=== PATIENT | male | born 1965 | race Caucasian/White ===

== ENCOUNTER 2016-08-17 07:31 | Emergency (ER) | payer SELFPAY ==
--- NOTE | 2016-08-17 08:22 | ERNOTE ---
Medical Problem HPI - Narrative Date of Service: 08/17/16 - General Chief Complaint: Laceration Time Seen by Provider: 08/17/16 08:07 Source: patient Exam Limitations: no limitations - Immun/Allergies/Home Medications Immunizations: IMMUNIZATION HX Immunizations Up to Date Yes Allergies/Adverse Reactions: Allergies No Known Allergies Allergy (Verified 08/17/16 07:39) Home Medications: HOME MEDICATIONS Cephalexin [Keflex] 500 mg PO QID #40 capsule 08/17/16 [Last Taken Unknown] - History of Present History Narrative: pt sustained a laceration to right middle and index finger three days ago. Now the middle digit laceration is swollen and red and tender. Review of Systems - Review of Systems Constitutional: Present: no symptoms reported EYE: Present: no symptoms reported ENT: Present: no symptoms reported Respiratory: Present: no symptoms reported Cardiology: Present: no symptoms reported Gastrointestinal/Abdominal: Present: no symptoms reported Genitourinary: Present: no symptoms reported Musculoskeletal: Present: See HPI Skin: Present: See HPI Neurological: Present: no symptoms reported - Patient's Past Medical History Patient History - Medical: Migraines Patient History - Cancer: No Hx of Cancer Patient History - Surgical Procedures: Other - Social History Living Situations: home Alcohol Use: none - Immunizations Immunizations Up to Date: Yes Physical Exam - Physical Exam General Appearance: Present: wd/wn, alert, no apparent distress Ears, Nose, Throat: Present: normal ENT inspection Respiratory: Present: no respiratory distress, normal breath sounds, no accessory muscle use, chest nontender, lungs clear. Absent: chest tenderness Cardiovascular/Chest: Present: regular rate, rhythm, no murmur, normal peripheral pulses Extremity Exam: Present: other - pt has a 1 cm laceration which appears to be infected in the dorsum of the PIP of right middle digit. Also 1 cm laceration to dorsum of right index PIP. These are OLD lacerations and no longer bleeding. The index finger laceration does not appear infected but it is slightly open ED Progress - Vital Signs Patient's Vital Signs:: I have reviewed the patient's vital signs. Vital Signs: Vital Signs 08/17/16 07:35 Temperature 37.3 C Pulse Rate 115 H Respiratory 12 Rate Blood Pressure 152/97 O2 Sat by Pulse 99 Oximetry - Progress/Reassessment Chief Complaint: Laceration Plan - Plan Plan: appropriate cultures were taken. The wounds were cleaned and dressed and volar splint applied so pt can NOT flex digits. Will administer Rocephin 2 gm IV and discharge on Keflex 500mg QID. This patient MUST follow up with PCP in 48-72 hours. Pt states last Tetanus shot was within five years ago. So none indicated today. Departure - Departure Clinical Impression: Cellulitis of finger of right hand Disposition: Home self-care Condition: Good Instructions: Cellulitis, Adult, [id number] Additional Instructions: YOU MUST CHOOSE A PHYSICIAN OR A PROVIDER AND FOLLOW UP WITH THEM IN 2 DAYS FOR A WOUND CHECK PLEASE. Prescriptions: Cephalexin [Keflex] 500 mg PO QID #40 capsule
[2016-08-17 08:50] VITALS: BP 148/87
== END 2016-08-17 09:12 | disposition home or self-care (01) ==
LOC: ER 07:31
PROC: 2W3JX1Z Immobilization of Right Finger using Splint (ICD-10-PCS; principal; 2016-08-17)
DX: L03.011 Cellulitis of right finger (principal)

== ENCOUNTER 2016-09-01 08:18 | Emergency (ER) | payer SELFPAY ==
--- OUTSIDE RECORDS SUMMARY | 2016-09-01 09:06 | XMS REPORT | Continuity of Care Document ---
:1965 Author Organization [facility] ([facility]) Address [place] [address] Phone [phone] Care Team Providers Name Role Phone Cass Nassar Primary Care Provider [phone] Source Comments This disclosure is being made pursuant to the Care Everywhere program, applicable federal and state laws, and may not contain all informaitonavailable regarding this patient.[facility] ([facility]) Active Allergies and Adverse Reactions No Known Allergies Current Medications Prescription Sig. Disp. Refills Start Date End Date Status SUMAtriptan 50 mg Take 1 Tab by mouth 9 Tab 6 09/26/2012 Active tablet once as needed. Indications: MIGRAINE propranolol 20 mg Take 1 Tab by mouth 180 Tab 6 09/26/2012 Active tablet 2 times daily. Indications: MIGRAINE PREVENTION Active Problems Problem Noted Date Nicotine addiction 09/26/2012 Migraine 01/14/2011 Resolved Problems Problem Noted Date Resolved Date Eczema 01/14/2011 09/26/2012 History of alcohol abuse 01/14/2011 09/26/2012 Social History Tobacco Use Types Packs/Day Years Used Date Current Every Day Smoker Cigarettes 0.5 20 Smokeless Tobacco: Never Used Alcohol Use Drinks/Week oz/Week Comments No Currently recovering alcoholic Last Filed Vital Signs Vital Sign Reading Time Taken Blood Pressure 123/82 09/26/2012 12:22 PM CDT Pulse 110 09/26/2012 12:22 PM CDT Temperature 36.7 C (98.1 F) 09/26/2012 12:22 PM CDT Respiratory Rate 24 01/14/2011 8:46 AM CDT Height 1.829 m (6') 09/26/2012 12:22 PM CDT Weight 90.266 kg (199 lb) 09/26/2012 12:22 PM CDT Body Mass Index 26.98 09/26/2012 12:22 PM CDT Oxygen Saturation - - Plan of Care Health Maintenance Due Date Last Done Comments HCV Screening 1965 Hepatitis B Vaccine (1 of 3 - Primary Series) 1965 Tdap Vaccine 09/22/1975 Lipid Disorder Screening 1982 MMR Vaccine 1982 Td Vaccine 1982 Pneumococcal Vaccine (1 of 1 - PPSV23) 09/22/1983 Colonoscopy 2014 Prostate Cancer Screening 2014 Influenza Vaccine: Seasonal (#1) 02/15/2016 Results from Last 3 Months Not on file
--- NOTE | 2016-09-01 09:12 | ERNOTE ---
Upper Extremity HPI - Narrative Date of Service: 09/01/16 - General Extremities Pain Location: 3rd finger: right - WANTS RECHECKED. Time Seen by Provider: 09/01/16 08:57 Source: patient Exam Limitations: no limitations - Immun/Allergies/Home Medications Immunizations: IMMUNIZATION HX Immunizations Up to Date Yes Allergies/Adverse Reactions: Allergies Allergy/AdvReac Type Severity Reaction Status Date / Time No Known Allergies Allergy Verified 09/01/16 08:25 Home Medications: HOME MEDICATIONS Cephalexin [Keflex] 500 mg PO QID #40 capsule 08/17/16 [Last Taken Unknown] - History of Present Illness Narrative: STATES HE HAD CUTS TO RIGHT 2ND AND 3RD FINGERS DORSUM, FROM A BROKEN GLASS AT HOME. , 2 WEEKS AGO AND WAS SEEN HERE FOR TREATMENT . STATES THAT THE 3RD FINGER WOUND WHICH IS RIGHT OVER THE PIP JOINT, BECAME INFECTED AND HE WAS PUT ON AN ANTIBIOTIC. HE WAS SEEN AT THE [facility] FOR ROUTINE RECHECK AND SAYS THEY TOLD HIM HE SHOULD GO BACK TO THE ER FOR A WOUND CHECK. HE IS OFF THE ANTIBIOTIC NOW AND SAYS HE STILL HAS A LITTLE YELLOWISH CLEAR FLUID DRAIN FROM THE THE WOUND BUT THAT THE REDNESS HAS IMPROVED. THERE IS STILL SOME SWELLING OF THE KNUCKLE BUT HE SAYS HE HAS FULL MOVEMENT. HE DENIES ANY HISTORY OF HAVING A FOREIGN BODY IN THE WOUND. - Patient's Past Medical History Patient History - Medical: Migraines Patient History - Cancer: No Hx of Cancer Patient History - Surgical Procedures: Other - Social History Living Situations: home Smoking Status: Current every day smoker Have you smoked in the past 12 months: Yes Alcohol Use: none - Immunizations Immunizations Up to Date: Yes Physical Exam - Physical Exam General Appearance: Present: wd/wn, alert, severe distress Extremity Exam: Present: non-tender, no edema, normal range of motion, other - THERE IS SMALL ESCHAR OVER R. 3RD PIP JT WITH MILD INDURATION BUT NO PUS DRAINAGE. FULL ROM PRESENT. Neurological Exam: Present: alert, normal mood/affect Skin Exam: Present: normal color, warm/dry ED Progress - Vital Signs Vital Signs: Vital Signs 09/01/16 08:21 Temperature 36.3 C L Pulse Rate 88 Respiratory 12 Rate Blood Pressure 139/79 O2 Sat by Pulse 99 Oximetry - Progress/Reassessment Chief Complaint: Upper Extremity Injury/Problem Plan - Plan Plan: continue with daily checks and scrub of the wound with soap and water 2- 3 times a day. Pat dry and apply triple antibiotic and bandaid. It may take several days for the swelling to completely resolve but it not improving or if getting worse recheck with your doctor or return to the ER. Departure Clinical Impression: Encounter for wound re-check - Departure Disposition: Home Follow Up Needed Condition: Good Instructions: How to Change Your Dressing, [id number] Additional Instructions: As discussed, keep the wound clean with soap and water 2-3 times a day and then pat dry and apply triple antibiotic and bandaid. Recheck with your family doctor or return to the ER if worse or not gradually improving.
[2016-09-01 09:20] VITALS: BP 136/78
== END 2016-09-01 09:34 | disposition home or self-care (01) ==
LOC: ER 08:18
DX: S61.212D Laceration without foreign body of right middle finger without damage to nail, subsequent encounter (principal); Z48.00 Encounter for change or removal of nonsurgical wound dressing; W25.XXXD Contact with sharp glass, subsequent encounter; Y92.009 Unspecified place in unspecified non-institutional (private) residence as the place of occurrence of the external cause; F17.210 Nicotine dependence, cigarettes, uncomplicated